=== PATIENT | female | born 1985 | race Hispanic/Latino ===

== ENCOUNTER 2018-08-13 14:55 | Emergency (ER) | payer OTHER ==
[2018-08-13 15:26] LABS: RAPID GROUP A STREP NEGATIVE (NEGATIVE)
== END 2018-08-13 15:51 | disposition home or self-care (01) ==
LOC: EDH 14:55
DX: J45.21 Mild intermittent asthma with (acute) exacerbation (principal); J10.1 Influenza due to other identified influenza virus with other respiratory manifestations; Z98.51 Tubal ligation status
CPT/HCPCS: 87804; 87880

== ENCOUNTER 2018-10-23 17:00 | Emergency (ER) | payer SELFPAY | END 2018-10-23 17:50 | disposition home or self-care (01) | LOC: EDH 17:00 | DX: H10.32 Unspecified acute conjunctivitis, left eye (principal); J45.909 Unspecified asthma, uncomplicated; Z98.51 Tubal ligation status ==

== ENCOUNTER 2018-10-25 07:15 | Emergency (ER) | payer OTHER | END 2018-10-25 08:15 | disposition home or self-care (01) | LOC: EDH 07:15 | DX: J01.00 Acute maxillary sinusitis, unspecified (principal); J45.909 Unspecified asthma, uncomplicated; Z87.891 Personal history of nicotine dependence ==

== ENCOUNTER 2018-12-15 16:59 | Emergency (ER) | payer SELFPAY ==
[2018-12-15] MEDS ORDERED: ACETAMINOPHEN 325 MG TAB ONE (17:16)
== END 2018-12-15 18:03 | disposition home or self-care (01) ==
LOC: EDH 16:59
DX: S23.3XXA Sprain of ligaments of thoracic spine, initial encounter (principal); S80.11XA Contusion of right lower leg, initial encounter; J45.909 Unspecified asthma, uncomplicated; Z72.0 Tobacco use; W18.49XA Other slipping, tripping and stumbling without falling, initial encounter; Y93.89 Activity, other specified; Y92.512 Supermarket, store or market as the place of occurrence of the external cause; Y99.8 Other external cause status
CPT/HCPCS: 73590

== ENCOUNTER 2019-06-25 01:23 | Emergency (ER) | payer SELFPAY | END 2019-06-25 01:55 | LOC: EDH 01:23 | DX: Z02.83 Encounter for blood-alcohol and blood-drug test (principal); J45.909 Unspecified asthma, uncomplicated | CPT/HCPCS: 36415 ==